=== PATIENT | male | born 1975 | race Caucasian/White ===

== ENCOUNTER → 2016-10-09 | Outpatient (CLI) | payer BC ==
--- NOTE | 2016-10-09 11:47 | DI ---
XR SHOULDER MIN 2VW,10/09/2016 9:26 AM: Clinical History: Right shoulder pain of unknown chronicity. Previous Exam: July 30, 2015 Findings: 4 views of the right shoulder are obtained, and demonstrate anatomic alignment without fractures. The right acromioclavicular joint is normal. The adjacent right lung and chest wall are unremarkable. Impression: Normal right shoulder.
== END ==
LOC: ORTHO 09:38
PROVIDERS: ATTEND Orthopaedic Surgery
DX: M25.511 Pain in right shoulder (principal); M19.011 Primary osteoarthritis, right shoulder
CPT/HCPCS: 73030

== ENCOUNTER → 2016-10-17 | Outpatient (CLI) | payer BC ==
--- NOTE | 2016-10-17 09:09 | DI ---
MRI UP EXTREMITY JNT W/O CN,10/17/2016 7:55 AM: Clinical History: Right shoulder pain of unspecified chronicity. Previous Exam: August 10, 2015 contralateral shoulder. Plain films of the right shoulder performed October 09, 2016 Findings: Multiplanar MR images are obtained through the right shoulder without contrast. Bony alignment is anatomic. There are some subchondral cysts noted within the right posterior glenoid . The glenoid labrum posteriorly demonstrates a complex tear with a large complex intellectual property paralegal cyst in [place] se association with the area of the subchondral cyst formation. There is increased signal involving the distal supraspinatus as well as the distal infraspinatus. The long head of the biceps tendon is intact. There is some fluid within the acromioclavicular joint with some mild degenerative changes. This flui d causes some mass effect on the underlying supraspinatus tendon. The major vascular flow voids are unremarkable. Signal within the musculature is unremarkable. There is no abnormal bursal fluid. The acromion process is normal with some mild lateral downsloping. Impression: 1. Complex tear of the posterior glenoid labrum with a large associated para labral cyst and some sub chondral cyst formation within the posterior glenoid likely representing some associated chondromalac ia. 2. Mild tendinosis of the distal supraspinatus tendon. 3. Degenerative hypertrophy of the acromioclavicular joint.
== END ==
LOC: MRI 07:21
PROVIDERS: ATTEND Orthopaedic Surgery
DX: M25.511 Pain in right shoulder (principal); S43.491A Other sprain of right shoulder joint, initial encounter; M65.811 Other synovitis and tenosynovitis, right shoulder; M19.011 Primary osteoarthritis, right shoulder
CPT/HCPCS: 73221

== ENCOUNTER → 2016-11-03 | Outpatient (CLI) | payer BC ==
--- NOTE | 2016-11-03 14:45 | DI ---
LEFT SHOULDER JOINT INJECTION FOR MRI SCAN, 11/03/2016 1:02 PM: Clinical History: Left shoulder pain. Previous arthroscopic repair for a labral tear. Previous Exam: None at this facility. A "time out" session was performed to verify the patient's name and date of prior to obtaining informed signed consent prior for this procedure. The patient was informed of benefits and risks, to include but not be limited to: allergies to medications (skin preparation agent, local anesthetic, an d contrast agent); joint infection; and joint pain following the procedure. The area was prepped with ChloraPrep solution. 1% lidocaine without epinephrine was used for intrader mal and subcutaneous local anesthesia. A 22 gauge spinal needle was introduced under fluoroscopy into the joint space with a single pass. No joint fluid could be aspirated. However, before the complete amount of fluid was injected, there is suggestion that there was extravasation since the needle was r epositioned in the final amount of contrast material was injected. 15 mL of a mixture containing 2 mL of Omipaque 300 and 13 mL of normal saline was injected into the joint. Spot films of the area were obtained. The patient tolerated the procedure well and was transferred to the MRI scan suite for the MRI arthrogram. The patient was advised to watch for signs of an infection (including but not limited to: redness, swelling, or fever). The patient was instructed to either contact the x-ray department directly or to report to the Emergency Room immediately if problems arose. There is no evidence of a rotator cuff tear. The cartilaginous surfaces of the shoulder joint are int act. The superior and inferior labrum are normal. Reading: Successful joint injection as above. There is no evidence of a rotator cuff tear based on the spot fi lms.
--- NOTE | 2016-11-04 09:41 | DI ---
MRI LEFT SHOULDER SCAN WITH INTRA-ARTICULAR CONTRAST, 11/03/2016 1:01 PM: Clinical History: Superior glenoid labrum lesion of the left shoulder. Previous Exam: 10/05/2009. Technique: Axial, coronal, and sagittal fat saturated PD; axial gradient FE; coronal fat saturatedT2 weighted; sagittal T2 weighted; PD fat saturated ABER projection. There is mild arthrosis of the AC joint and the patient has a type II acromion. No abnormal bone sign al pattern indicating edema is present but there is sclerosis of the glenoid fossa along the posterio r-superior portion of the glenoid fossa secondary to arthritic disease. Metallic susceptibility artif acts are visualized on the gradient echo sequence secondary to prior surgery. There is tendinosis of the supraspinatus tendon. There is an articular surface partial tear involving the conjoined tendon a t its attachment to the humeral head with transverse and AP dimensions of approximately 4 x 4 millime ters. There is a partial articular surface tear of the posterior portion of the infraspinatus tendon at its attachment to the humeral head. It measures approximately 7 x 7 mm in transverse and AP dimens ions. The subscapularis and teres minor tendons and the tendon of the long head of the biceps muscle are normal. There is a soft tissue Bankart lesion involving the anteroinferior quadrant. This tear ex tends posteriorly to the 6:00 position and then posteriorly and superiorly to the equator. The filipe l head is subluxed posteriorly and superiorly so that the primary point of contact between the glenoi d fossa and the humeral head corresponds to the sclerotic area seen in the glenoid fossa. There is ma rked thinning of the cartilaginous surface of the glenoid fossa at the location of the bone sclerosis in the fossa. There is atrophy and fatty infiltration of the teres minor muscle and this is classifi ed as a grade 2 Goutallier lesion. There is no abnormality noted in the quadrilateral space to explai n this finding. Readin. There are focal partial tears of the articular surface of the conjoined tendon measuring 4 x 4 mi llimeters, and of the posterior portion of the infraspinatus tendon measuring 7 x 7 mm. There is tend inosis of the supraspinatus tendon. 2. There is mild posterior and superior subluxation of the humeral head with marked sclerosis of the posterosuperior quadrant of the glenoid fossa secondary to arthritis. The cartilaginous surface of t he glenoid fossa in this location is markedly thin. There is a tear of the posterior labrum from the equator extending inferiorly and anteriorly toward the 6:00 position. There is a soft tissue Bankart lesion in the anteroinferior quadrant. 3. Since the initial study, the patient has developed atrophy with fatty infiltration of the teres m inor muscle, a Goutallier grade 2 finding, and this would imply injury to the axillary nerve supplyin g the muscle. The quadrilateral space is normal. 4. The tendons of the teres minor and subscapularis muscles in the tendon of the long head of the bi ceps muscle are normal. There is mild AC joint arthrosis with a type II acromion.
== END ==
LOC: RAD 12:28
PROVIDERS: ATTEND Orthopaedic Surgery
DX: S43.431D Superior glenoid labrum lesion of right shoulder, subsequent encounter (principal); M24.112 Other articular cartilage disorders, left shoulder
CPT/HCPCS: 23350; 73222